=== PATIENT | male | born 1970 | race African-American/Black ===

== ENCOUNTER 2016-09-20 22:54 | Emergency (ER) | payer OTHER ==
[~2016-09-20] VITALS: Ht 177.8 cm; Wt 70.2 kg
[2016-09-21] MEDS ORDERED: MOTRIN800 MG PO (02:15)
[2016-09-21 02:27] VITALS: BP 152/98
== END 2016-09-21 02:28 | disposition home or self-care (01) ==
LOC: EME 22:54
PROC: 0HQ1XZZ Repair Face Skin, External Approach (ICD-10-PCS; principal; 2016-09-20)
DX: S01.81XA Laceration without foreign body of other part of head, initial encounter (principal); S60.511A Abrasion of right hand, initial encounter; W18.30XA Fall on same level, unspecified, initial encounter; F10.10 Alcohol abuse, uncomplicated; F12.10 Cannabis abuse, uncomplicated; F17.200 Nicotine dependence, unspecified, uncomplicated
CPT/HCPCS: 70450; 99281; 99284

== ENCOUNTER 2017-01-19 08:57 | Emergency (ER) | payer BC, OTHER ==
[~2017-01-19] VITALS: Ht 175.3 cm; Wt 70.1 kg
[~2017-01-19 08:57] MED LIST: MOTRIN800 MG PO
[2017-01-19] MEDS ORDERED: ERYTHROMYC1 APPLICAT RIGHT EYE (13:05)
[2017-01-19] MEDS ORDERED: KEFLEX500 MG PO (13:05)
[2017-01-19 13:18] VITALS: BP 152/99
== END 2017-01-19 13:19 | disposition home or self-care (01) ==
LOC: EME 08:57
PROC: 3E0234Z Introduction of Serum, Toxoid and Vaccine into Muscle, Percutaneous Approach (ICD-10-PCS; principal; 2017-01-19)
DX: S01.111A Laceration without foreign body of right eyelid and periocular area, initial encounter (principal); S02.81XA Fracture of other specified skull and facial bones, right side, initial encounter for closed fracture; S02.2XXA Fracture of nasal bones, initial encounter for closed fracture; W19.XXXA Unspecified fall, initial encounter; F10.10 Alcohol abuse, uncomplicated; F12.90 Cannabis use, unspecified, uncomplicated; Z23 Encounter for immunization
CPT/HCPCS: 70480; 99281; 99284

== ENCOUNTER 2017-03-27 21:36 | Emergency (ER) | payer OTHER ==
[~2017-03-27] VITALS: Ht 175.3 cm; Wt 72.8 kg
[~2017-03-27 21:36] MED LIST changes: +ERYTHROMYC1 APPLICAT RIGHT EYE; +KEFLEX500 MG PO
[2017-03-27] MEDS ORDERED: IBUPROFEN800 MG PO (22:42)
[2017-03-27 23:14] VITALS: BP 103/60
== END 2017-03-27 23:17 | disposition home or self-care (01) ==
LOC: EME 21:36
DX: S83.91XA Sprain of unspecified site of right knee, initial encounter (principal); X50.9XXA Other and unspecified overexertion or strenuous movements or postures, initial encounter
CPT/HCPCS: 73564; 99281; 99284

== ENCOUNTER 2017-07-17 21:55 | Inpatient (IN) | payer OTHER ==
[~2017-07-17] VITALS: Ht 175.3 cm; Wt 70.9 kg
[~2017-07-17 21:55] MED LIST changes: +IBUPROFEN800 MG PO
[2017-07-17 22:16] LABS: BASOPHIL (%) 0.7 % (0-1); BASOPHIL COUNT 0.1 K/uL (0-0.1); EOSINOPHIL (%) 1.4 % (0-5); EOSINOPHIL COUNT 0.1 K/uL (0-0.3); HEMATOCRIT 36.5 % (38.0-50.0); HEMOGLOBIN 11.8 G/DL (12.5-16.6); IMMATURE GRANULOCYTE (%) 0.7 % (0.0-0.7); LYMPHOCYTE (%) 53.8 % (15-42); LYMPHOCYTE COUNT 4.1 K/uL (1.0-2.8); MCH 30.3 PG (29.0-34.0); MCHC 32.3 G/DL (30.0-36.0); MCV 93.6 FL (86-99); MONOCYTE (%) 6.9 % (3-12); MONOCYTE COUNT 0.5 K/uL (0-0.8); NEUTROPHIL (%) 36.5 % (45-76); NEUTROPHIL COUNT 2.8 K/uL (1.8-6.4); PLATELET COUNT 227 K/uL (156-360); RBC DIS.WIDTH-CV 14.6 % (11.8-14.6); RBC DIS.WIDTH-SD 50.5 % (39-53); WHITE BLOOD COUNT 7.7 K/uL (4.1-10.2)
[2017-07-17 22:45] LABS: AMYLASE 106 IU/L (1-118); CHLORIDE 107 mEq/L (99-109); POTASSIUM 3.6 mEq/L (3.7-5.4); SODIUM 140 mEq/L (136-147)
[2017-07-17 22:47] LABS: GLUCOSE 94 mg/dL (70-99)
[2017-07-17 22:50] LABS: SERUM ETHYL ALCOHOL 177 mg/dL
[2017-07-17 22:51] LABS: CREATININE 1.5 mg/dL (0.6-1.3); GFR ESTIMATE (CALCULATED) > 59 mL/min/ (58.99-99999)
[2017-07-17 22:52] LABS: UREA NITROGEN (BUN) 16 mg/dL (9-23)
[2017-07-17 22:54] LABS: LIPASE 21 U/L (1.0-51.0)
[2017-07-18] MEDS ORDERED: [UNRECOGNIZED DRUG - OTHER] (00:22)
[2017-07-18 01:30] LABS: APPEARANCE CLEAR ((CLEAR)); BILIRUBIN NEGATIVE; BLOOD MODERATE; COLOR YELLOW ((YELLOW)); GLUCOSE (STRIP) NEGATIVE; KETONES NEGATIVE; LEUKOCYTES LARGE; NITRITE NEGATIVE; PROTEIN (STRIP) 30; SPECIFIC GRAVITY 1.013 (1.000-1.030); UROBILINOGEN 0.2 MG/DL (0.2-1.0)
[2017-07-18 01:39] LABS: MAGNESIUM 2.4 mg/dL (1.3-2.7)
[2017-07-18 01:41] LABS: AMPHETAMINE NEGATIVE (500 ng/mL); BARBITURATES NEGATIVE (200 ng/mL); BENZODIAZEPINES NEGATIVE (150 ng/mL); BUPRENORPHINE NEGATIVE (10 ng/mL); COCAINE NEGATIVE (150 ng/mL); METHADONE NEGATIVE (200 ng/mL); METHAMPHETAMINE NEGATIVE (500 ng/mL); OPIATES (MORPHINE) NEGATIVE (100 ng/mL); OXYCODONE NEGATIVE (100 ng/mL); PHENCYCLIDINE NEGATIVE (25 ng/mL); PROPOXYPHENE NEGATIVE (300 ng/mL); THC CANNABINOIDS PRESUMPTIVE POSITIVE (50 ng/mL); TRICYCLIC ANTIDEPRESSANTS NEGATIVE (300 ng/mL)
[2017-07-18 01:43] LABS: BACTERIA RARE /HPF; EPITHELIAL CELLS RARE /HPF; MUCUS TRACE /LPF; RED BLOOD CELLS 15-20 /HPF (0-5); UCUL ADDED? YES; WHITE BLOOD CELLS TNTC /HPF (0-5)
[2017-07-18 01:47] VITALS: BP 137/78
[2017-07-18 05:54] LABS: HEMATOCRIT 32.8 % (38.0-50.0); HEMOGLOBIN 11.2 G/DL (12.5-16.6); MCH 30.3 PG (29.0-34.0); MCHC 34.1 G/DL (30.0-36.0); PLATELET COUNT 236 K/uL (156-360); RBC DIS.WIDTH-CV 14.3 % (11.8-14.6); RBC DIS.WIDTH-SD 46.5 % (39-53); WHITE BLOOD COUNT 10.9 K/uL (4.1-10.2)
[2017-07-18 05:57] LABS: MCV 88.6 FL (86-99)
[2017-07-18 07:07] LABS: ALBUMIN 3.6 G/DL (3.2-4.8); ALKALINE PHOSPHATASE 36 IU/L (3-129); ALT (GPT) 13 IU/L (3-49); AST (GOT) 24 IU/L (2-34); CHLORIDE 109 MEQ/L (99-109); CREATININE 1.3 MG/DL (0.6-1.3); GFR ESTIMATE (CALCULATED) > 59 mL/min/ (58.99-99999); GLUCOSE 78 mg/dL (70-99); POTASSIUM 3.9 MEQ/L (3.7-5.4); SODIUM 140 MEQ/L (136-147); TOTAL BILIRUBIN 0.4 MG/DL (0.0-1.0); TOTAL PROTEIN 6.7 G/DL (6.4-8.3); UREA NITROGEN (BUN) 17 mg/dL (9-23)
[2017-07-18 08:16] VITALS: BP 138/58
[2017-07-18 11:59] VITALS: BP 156/88
[2017-07-18 16:30] VITALS: BP 152/85
[2017-07-18 19:20] VITALS: BP 169/82
[2017-07-19 00:16] VITALS: BP 175/78
[2017-07-19 04:38] VITALS: BP 165/76
[2017-07-19 05:49] LABS: BASOPHIL (%) 0.3 % (0-1); EOSINOPHIL (%) 0.9 % (0-5); EOSINOPHIL COUNT 0.1 K/uL (0-0.3); HEMATOCRIT 32.4 % (38.0-50.0); HEMOGLOBIN 11.1 G/DL (12.5-16.6); IMMATURE GRANULOCYTE (%) 0.2 % (0.0-0.7); LYMPHOCYTE (%) 29.2 % (15-42); LYMPHOCYTE COUNT 1.9 K/uL (1.0-2.8); MCH 30.2 PG (29.0-34.0); MCHC 34.3 G/DL (30.0-36.0); MCV 88.3 FL (86-99); MONOCYTE (%) 12.8 % (3-12); MONOCYTE COUNT 0.8 K/uL (0-0.8); NEUTROPHIL (%) 56.6 % (45-76); NEUTROPHIL COUNT 3.7 K/uL (1.8-6.4); PLATELET COUNT 223 K/uL (156-360); RBC DIS.WIDTH-CV 14.1 % (11.8-14.6); RBC DIS.WIDTH-SD 45.6 % (39-53); RED BLOOD COUNT 3.67 M/uL (4.00-5.50); WHITE BLOOD COUNT 6.5 K/uL (4.1-10.2)
[2017-07-19 06:24] LABS: CHLORIDE 107 MEQ/L (99-109); CREATININE 1.1 MG/DL (0.6-1.3); GFR ESTIMATE (CALCULATED) > 59 mL/min/ (58.99-99999); POTASSIUM 3.6 MEQ/L (3.7-5.4); SODIUM 138 MEQ/L (136-147); UREA NITROGEN (BUN) 11 mg/dL (9-23)
[2017-07-19 06:25] LABS: GLUCOSE 108 mg/dL (70-99)
[2017-07-19 09:31] VITALS: BP 152/78
[2017-07-19] MEDS ORDERED: OXYCODONE HCL5 MG PO (10:10)
[2017-07-19 16:13] VITALS: BP 141/81
== END 2017-07-19 19:44 | disposition home or self-care (01) | DRG 987 ==
LOC: TRA 21:55 → 3EAST 07-18 00:21 → EDOF 07-18 00:21 → ENRESERV 07-18 00:21 → 3EAST 07-18 01:33
PROVIDERS: Emergency Medicine; Physician Assistant; Surgery
DX: S27.2XXA Traumatic hemopneumothorax, initial encounter (principal); S21.412A Laceration without foreign body of left back wall of thorax with penetration into thoracic cavity, initial encounter; S27.331A Laceration of lung, unilateral, initial encounter; S22.32XA Fracture of one rib, left side, initial encounter for closed fracture; T79.7XXA Traumatic subcutaneous emphysema, initial encounter; F12.90 Cannabis use, unspecified, uncomplicated; X99.9XXA Assault by unspecified sharp object, initial encounter; Y92.410 Unspecified street and highway as the place of occurrence of the external cause; Z72.89 Other problems related to lifestyle
CPT/HCPCS: 71045; 71250; 80048; 80053; 81003; 82150; 83690; 83735; 84999; 85025; 85027; 86850; 86900; 86901; 87086; 99281; 99285; G0480; J0690; J7120

== ENCOUNTER 2017-08-18 21:55 | Emergency (ER) | payer OTHER ==
[~2017-08-18] VITALS: Ht 177.8 cm; Wt 71.2 kg
[~2017-08-18 21:55] MED LIST changes: +OXYCODONE HCL5 MG PO; +[UNRECOGNIZED DRUG - OTHER]
[2017-08-19 00:30] VITALS: BP 149/91
== END 2017-08-19 00:31 | disposition home or self-care (01) ==
LOC: EME 21:55
PROC: 0HQ1XZZ Repair Face Skin, External Approach (ICD-10-PCS; principal; 2017-08-18)
DX: S01.511A Laceration without foreign body of lip, initial encounter (principal); Y04.2XXA Assault by strike against or bumped into by another person, initial encounter; Z87.891 Personal history of nicotine dependence
CPT/HCPCS: 99281; 99284